=== PATIENT | female | born 1980 | race African-American/Black ===

== ENCOUNTER 2018-07-11 20:21 | Inpatient (IN) | payer MEDICAID ==
[~2018-07-11] VITALS: Ht 149.9 cm; Wt 60.0 kg
[~2018-07-11 20:21] MED LIST: DOCU-131 PO; HYDR-3240 PO; IBUP-1223 PO; PREN1TAB27 PO
[2018-07-11 20:25] VITALS: BP 112/72
[2018-07-11] MEDS ORDERED: LACTATED RINGERS 1,000 ML IV SCH ×2 (21:00→21:01)
[2018-07-11] MEDS ORDERED: OXYTOCIN 30U/ 0.9% NaCL 500ML 500 ML IV SCH (21:01)
[2018-07-11] MEDS ORDERED: CALCIUM CARBONATE 500 MG TAB.CHEW PO PRN (21:30)
[2018-07-11] MEDS ORDERED: METOCLOPRAMIDE 5 MG/ML, 2ML IV ONE (21:30)
[2018-07-11] MEDS ORDERED: LACTATED RINGERS 1,000 ML IVBOLUS ONE (21:30)
[2018-07-11] MEDS ORDERED: ONDANSETRON 2MG/ML, 2ML IVPush ONE (21:30)
[2018-07-11] MEDS ORDERED: SODIUM CITRATE/CITRIC ACID 30 ML UDC PO ONE (21:30)
[2018-07-11 21:39] LABS: BASOPHILS # (AUTO) 0.04 x10^3/uL (0-0.1); BASOPHILS % (AUTO) 0 % (0-1); EOSINOPHILS # (AUTO) 0.02 x10^3/uL (0-0.4); EOSINOPHILS % (AUTO) 0 % (1-7); LYMPHOCYTES # (AUTO) 2.19 x10^3/uL (1-3.4); LYMPHOCYTES % (AUTO) 22 % (22-44); MD NO; MEAN CORPUSCULAR HEMOGLOBIN 35.8 pg (27.0-34.8); MEAN CORPUSCULAR HGB CONC 34.9 g/dL (32.4-35.8); MEAN CORPUSCULAR VOLUME 102.5 fL (80-100); MEAN PLATELET VOLUME 8.8 fL (7.4-10.4); MONOCYTES % (AUTO) 5 % (2-9); NEUTROPHILS % (AUTO) 73 % (42-75); PLATELET COUNT 179 x10^3/uL (130-400); RED BLOOD COUNT 3.52 x10^6/uL (3.82-5.3); RED CELL DISTRIBUTION WIDTH 13.1 % (9.6-15.2)
[2018-07-11] MEDS ORDERED: CEFAZOLIN 1,000 MG ONE (22:09)
[2018-07-11] MEDS ORDERED: OXYTOCIN 10 UNITS/ML, 1ML ONE (22:09)
[2018-07-11] MEDS ORDERED: ONDANSETRON 2MG/ML, 2ML ONE (22:09)
[2018-07-11] MEDS ORDERED: FENTANYL PF 100 MCG/2ML ONE (22:10)
[2018-07-11] MEDS ORDERED: HYDROmorphone 2 MG/ML, 1ML ONE (22:10)
[2018-07-11] MEDS ORDERED: SODIUM CHLORIDE 0.9% PF 10ML ONE ×2 (22:10)
[2018-07-11] MEDS ORDERED: SODIUM CITRATE/CITRIC ACID 30 ML UDC ONE (23:42)
[2018-07-11] MEDS ORDERED: METOCLOPRAMIDE 5 MG/ML, 2ML ONE (23:42)
[2018-07-11] MEDS ORDERED: OXYTOCIN 30U/ 0.9% NaCL 500ML 500 ML ONE (23:58)
[2018-07-12] MEDS ORDERED: EPHEDRINE 50 MG/ML, 1ML ONE (00:58)
[2018-07-12] MEDS: OXYTOCIN 30U/ 0.9% NaCL 500ML 500 ML IV SCH ×4 (02:03→22:49)
[2018-07-12] MEDS: LACTATED RINGERS 1,000 ML IV SCH ×7 (02:03→22:48)
[2018-07-12] MEDS ORDERED: KETOROLAC 30 MG/1 ML ONE (02:13)
[2018-07-12] MEDS: KETOROLAC 30 MG/1 ML IV SCH ×5 (02:22→20:27)
[2018-07-12] MEDS ORDERED: SIMETHICONE 80 MG CHEW TAB PO PRN (02:30)
[2018-07-12] MEDS ORDERED: CALCIUM CARBONATE 500 MG TAB.CHEW PO PRN (02:30)
[2018-07-12] MEDS ORDERED: OXYcodone IR 5MG TABLET PO PRN (02:30)
[2018-07-12] MEDS ORDERED: ACETAMINOPHEN 325 MG TABLET PO PRN (02:30)
[2018-07-12] MEDS ORDERED: ONDANSETRON 2MG/ML, 2ML IV PRN (02:30)
[2018-07-12] MEDS ORDERED: OXYcodone/APAP 5/325MG TABLET PO PRN (02:30)
[2018-07-12] MEDS ORDERED: METHYLERGONOVINE 0.2 MG/ML IM PRN (02:30)
[2018-07-12] MEDS ORDERED: ONDANSETRON 2MG/ML, 2ML ONE (02:49)
[2018-07-12] MEDS ORDERED: PROMETHAZINE 25 MG/ML, 1ML ONE (03:26)
[2018-07-12 03:30] VITALS: BP 130/75
[2018-07-12] MEDS ORDERED: PROMETHAZINE 25 MG/ML, 1ML IM PRN (03:30)
[2018-07-12] MEDS: HYDROcodone/APAP 5/325 TABLET PO PRN ×4 (07:03→20:23)
[2018-07-12] MEDS ORDERED: DIPHENHYDRAMINE 50 MG CAPSULE ONE (07:21)
[2018-07-12] MEDS: DIPHENHYDRAMINE 50 MG CAPSULE PO PRN (07:23)
[2018-07-12 08:20] VITALS: BP 115/78
[2018-07-12] MEDS: PRENATAL VIT/IRON/FA 1 EACH TABLET PO SCH (09:00)
[2018-07-12 09:27] LABS: BASOPHILS # (AUTO) 0.01 x10^3/uL (0-0.1); BASOPHILS % (AUTO) 0 % (0-1); EOSINOPHILS % (AUTO) 0 % (1-7); LYMPHOCYTES # (AUTO) 1.33 x10^3/uL (1-3.4); LYMPHOCYTES % (AUTO) 11 % (22-44); MD NO; MEAN CORPUSCULAR HEMOGLOBIN 35.3 pg (27.0-34.8); MEAN CORPUSCULAR HGB CONC 34.5 g/dL (32.4-35.8); MEAN CORPUSCULAR VOLUME 102.4 fL (80-100); MEAN PLATELET VOLUME 8.5 fL (7.4-10.4); MONOCYTES # (AUTO) 0.81 x10^3/uL (0.2-0.8); MONOCYTES % (AUTO) 7 % (2-9); NEUTROPHILS # (AUTO) 9.83 x10^3/uL (1.8-6.8); NEUTROPHILS % (AUTO) 82 % (42-75); PLATELET COUNT 157 x10^3/uL (130-400); RED BLOOD COUNT 3.42 x10^6/uL (3.82-5.3); RED CELL DISTRIBUTION WIDTH 13.1 % (9.6-15.2)
[2018-07-12 12:00] VITALS: BP 118/76
[2018-07-12 16:45] VITALS: BP 122/84
[2018-07-12 19:15] VITALS: BP 126/79
[2018-07-12] MEDS: DOCUSATE 100 MG CAPSULE PO PRN (20:23)
[2018-07-12] MEDS: IBUPROFEN 600 MG TABLET PO PRN (20:28)
[2018-07-13] MEDS: HYDROcodone/APAP 5/325 TABLET PO PRN ×6 (01:40→23:43)
[2018-07-13] MEDS: LACTATED RINGERS 1,000 ML IV SCH ×2 (02:03→05:14)
[2018-07-13] MEDS: IBUPROFEN 600 MG TABLET PO PRN ×4 (04:13→23:36)
[2018-07-13 07:15] VITALS: BP 114/75
[2018-07-13] MEDS: PRENATAL VIT/IRON/FA 1 EACH TABLET PO SCH (08:04)
[2018-07-13] MEDS: DOCUSATE 100 MG CAPSULE PO PRN ×2 (08:04→19:50)
[2018-07-13] MEDS: DIPHENHYDRAMINE 50 MG CAPSULE PO PRN (16:02)
[2018-07-13 19:25] VITALS: BP 119/79
[2018-07-14] MEDS: DIPHENHYDRAMINE 50 MG CAPSULE PO PRN ×3 (00:18→16:59)
[2018-07-14] MEDS: HYDROcodone/APAP 5/325 TABLET PO PRN ×4 (03:55→17:00)
[2018-07-14] MEDS: IBUPROFEN 600 MG TABLET PO PRN ×2 (05:44→12:50)
[2018-07-14 07:30] VITALS: BP 125/82
[2018-07-14] MEDS: DOCUSATE 100 MG CAPSULE PO PRN (08:45)
[2018-07-14] MEDS: PRENATAL VIT/IRON/FA 1 EACH TABLET PO SCH (08:45)
[2018-07-14] MEDS ORDERED: IBUP-1222 PO (16:00)
[2018-07-14] MEDS ORDERED: HYDR-3240 PO (16:01)
[2018-07-14] MEDS ORDERED: DIPH25CA61 PO (16:02)
== END 2018-07-14 17:15 | disposition home or self-care (01) | DRG 787 ==
LOC: LDOP 20:21 → LDIP 21:06 → 2NW 07-12 03:08
PROVIDERS: ADMIT Obstetrics & Gynecology; ATTEND Obstetrics & Gynecology
PROC: 10D00Z1 Extraction of Products of Conception, Low, Open Approach (ICD-10-PCS; principal; 2018-07-13)
DX: O34.211 Maternal care for low transverse scar from previous cesarean delivery (principal); Q60.0 Renal agenesis, unilateral; O99.52 Diseases of the respiratory system complicating childbirth; J45.909 Unspecified asthma, uncomplicated; Z37.0 Single live birth; Z3A.39 39 weeks gestation of pregnancy; Z88.0 Allergy status to penicillin; Z88.6 Allergy status to analgesic agent
CPT/HCPCS: 36415; 85025; 86850; 86900; 89060; G0378; J0690; J1170; J1885; J2405; J3010; J2590; J2765; J7120; Q0114

== ENCOUNTER 2018-10-28 10:14 | Emergency (ER) | payer MEDICAID ==
[~2018-10-28] VITALS: Ht 149.9 cm; Wt 51.3 kg
[~2018-10-28 10:14] MED LIST changes: +DIPH25CA61 PO; +IBUP-1222 PO
[2018-10-28 10:28] VITALS: BP 134/84
--- NOTE | 2018-10-28 10:33 | NUR ---
pt in room 08
[2018-10-28] MEDS ORDERED: FLUORESCEIN OPHTHALMIC 1 MG STRIP ONE (10:45)
[2018-10-28] MEDS ORDERED: PROPARACAINE OPHTH 0.5%, 15ML ONE (10:45)
[2018-10-28] MEDS ORDERED: PROPARACAINE OPHTH 0.5%, 15ML EACHEYE ONE (11:00)
[2018-10-28] MEDS ORDERED: FLUORESCEIN OPHTHALMIC 1 MG STRIP EACHEYE ONE (11:00)
== END 2018-10-28 11:07 | disposition home or self-care (01) ==
LOC: ED 11:04
DX: H10.022 Other mucopurulent conjunctivitis, left eye (principal)
CPT/HCPCS: 99283

== ENCOUNTER 2018-12-18 10:46 | Emergency (ER) | payer MEDICAID ==
[~2018-12-18] VITALS: Ht 127 cm; Wt 54.0 kg
[2018-12-18 10:48] VITALS: BP 121/74
--- NOTE | 2018-12-18 11:10 | NUR ---
RIGHT EAR PAIN AND DECREASED HEARING FOR ONE MONTH
== END 2018-12-18 11:43 | disposition home or self-care (01) ==
LOC: ED 11:34
DX: H60.501 Unspecified acute noninfective otitis externa, right ear (principal); H92.01 Otalgia, right ear; J45.909 Unspecified asthma, uncomplicated; Z87.891 Personal history of nicotine dependence
CPT/HCPCS: 99283

== ENCOUNTER 2021-03-02 11:40 | Emergency (ER) | payer MEDICAID ==
[~2021-03-02] VITALS: Ht 149.9 cm; Wt 50.8 kg
[~2021-03-02 11:40] MED LIST changes: +HYDR-2214 PO; -HYDR-3240 PO
[2021-03-02 12:56] VITALS: BP 143/54
--- NOTE | 2021-03-02 13:53 | NUR ---
SIGNED OUT WITH TRIAGE.
== END 2021-03-02 14:04 | disposition left against medical advice (07) ==
LOC: ED 13:46
DX: R10.30 Lower abdominal pain, unspecified (principal); Z53.21 Procedure and treatment not carried out due to patient leaving prior to being seen by health care provider

== ENCOUNTER 2021-03-02 16:46 | Emergency (ER) | payer MEDICAID ==
[~2021-03-02] VITALS: Ht 157.5 cm; Wt 50.0 kg
[2021-03-02 17:40] LABS: MICROSCOPIC INDICATED
--- NOTE | 2021-03-02 18:42 | NUR ---
US at bedside.
--- NOTE | 2021-03-02 18:52 | NUR ---
received report from ANYI Whitaker
--- NOTE | 2021-03-02 18:58 | NUR ---
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
--- NOTE | 2021-03-02 18:59 | NUR ---
Pt is . Pt reports sharp pain that comes and goes starting Monday, denies urinary symptoms. Reports n/v. Denies vaginal bleeding, "little bit of discharge yesterday."
[2021-03-02 19:04] LABS: BASOPHILS % (AUTO) 1 % (0-1); EOSINOPHILS % (AUTO) 0 % (1-7); LYMPHOCYTES % (AUTO) 31 % (22-44); MEAN CORPUSCULAR HEMOGLOBIN 31.9 pg (27.0-34.8); MEAN CORPUSCULAR HGB CONC 33.7 g/dL (32.4-35.8); MEAN PLATELET VOLUME 6.9 fL (7.4-10.4); MONOCYTES % (AUTO) 7 % (2-9); NEUTROPHILS % (AUTO) 62 % (42-75); PLATELET COUNT 314 x10^3/uL (130-400); RED BLOOD COUNT 4.23 x10^6/uL (3.82-5.3); RED CELL DISTRIBUTION WIDTH 12.6 % (9.6-15.2)
[2021-03-02 19:17] LABS: ALANINE AMINOTRANSFERASE 15 U/L (12-78); ALBUMIN 3.7 g/dL (3.4-5.0); ANION GAP 7 mmol/L (5-15); CALCIUM 8.9 mg/dL (8.5-10.1); CHLORIDE 105 mmol/L (98-107); CREATININE 0.83 mg/dL (0.55-1.02)
[2021-03-02 19:34] LABS: ALKALINE PHOSPHATASE 49 U/L (45-117); BILIRUBIN,TOTAL 1.1 mg/dL (0.2-1.0); TOTAL PROTEIN 7.9 g/dL (6.4-8.2)
--- NOTE | 2021-03-02 19:56 | NUR ---
re-evaluation done. patient discharged with prescriptions and instruction.verbalized understanding.
[2021-03-02 19:57] VITALS: BP 112/76
== END 2021-03-02 20:01 | disposition home or self-care (01) ==
LOC: ED 19:45
DX: O26.891 Other specified pregnancy related conditions, first trimester (principal); R10.30 Lower abdominal pain, unspecified; R82.71 Bacteriuria; J45.909 Unspecified asthma, uncomplicated; Z90.49 Acquired absence of other specified parts of digestive tract; Z87.891 Personal history of nicotine dependence; Z3A.01 Less than 8 weeks gestation of pregnancy
CPT/HCPCS: 36415; 76801; 80053; 81001; 84702; 85025; 86901; 87086; 99284